=== PATIENT | female | born 1955 | race Caucasian/White ===

== ENCOUNTER 2024-09-10 09:00 | Outpatient (AMB) | payer OTHER, SELFPAY ==
--- NOTE | 2024-09-10 09:02 | MHC.PC.OV ---
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 Allergies cholecalciferol (vitamin D3) [Vitamin D3] Allergy (Unknown, Verified 09/10/24 09:02) nausea and vomiting epinephrine Allergy (Unknown, Verified 09/10/24 09:02) anaphylaxis penicillin V Allergy (Unknown, Verified 09/10/24 09:02) nausea and vomiting shell fish Allergy (Severe, Uncoded 09/10/24 09:23) Throat swelling Band-Aid Allergy (Unknown, Uncoded 09/10/24 09:02) redness and itching Nibley Syrup Allergy (Unknown, Uncoded 09/10/24 09:02) shortness of breath Latex Gloves Allergy (Unknown, Uncoded 09/10/24 09:02) itching Medical Adhesive Allergy (Unknown, Uncoded 09/10/24 09:02) redness and itching Medication List - Last Reconciled 09/10/24 by Kathi Block PA-C albuterol sulfate 90 mcg/actuation 2 puffs inhalation Q4-6H PRN cromolyn 1 spray intranasal TID diphenhydramine HCl (Benadryl) 25 mg PO BEDTIME PRN Tobacco use date assessed: 09/10/24 Fall risk assessment: No Falls in past year Last assessed Fall Risk: 09/10/24 Dental Screening Dental Screen Date: 09/10/24 Did you have a dental visit in the last 12 months?: Yes Did you have a dental problem in the last 6 months where you did not have access to dental care?: No Was dental information given to patient?: Patient has 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 She is transferring from [place]. She has a significant past medical history of a DVT, hidradenitis, monoallelic mutation of a TM gene, family history of pancreatic cancer granulomatous disease (lung, liver, spleen), fatty liver, dyslipidemia, allergic rhinitis, osteopenia, rectal polyp, breast cancer, alcohol abuse, lung nodule, osteoarthritis, tobacco use heme/onc: . Patient has a history of infiltrate in ductal carcinoma of the breast 13 years ago and has MRI/mammo follow ups. She got notice from [facility] recently that there are new recommendations regarding a TM gene for which she tested positive for. Pancreatic screening is recommended if she has a family history of pancreatic cancer. She has 3 maternal cousins who from pancreatic cancer. Has consult with GI for MRCP 09/23/24. Her brother recently tested positive for PABPN 1 gene for ocular pharyngeal muscular dystrophy. He is heterozygous dominant with a pathogenic variant of allele repeat #13. Per his results, testing for at-risk family members should be considered. Patient follows with Heme-Onc at [facility] Dr. Rodriguez. Dvt of left leg, on eliquis for life per heme/onc Dr. Rodriguez. CV: Blood pressure today in the office is 138/72. Has a history of high cholesterol and does not want statins. MSK: has OA Colonoscopy: Overdue and states that following her last colonoscopy she has had intermittent anal leakage and refuses to do this again. Does not want screening for colon cancer at this point. Bone density: 04/28-osteopenia Mammo/MRI: Mammo 08/28, MRI 02/26-needs new orders Pap: Not had 1 in many years and does not wish to start Low-dose lung cancer screening: June 2023 unchanged. Does this at [facility]. 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 1. Little interest or pleasure in doing things: not at all 2. Feeling down, depressed, or hopeless: not at all 3. Trouble falling or staying asleep, or sleeping too much: not at all 4. Feeling tired or having little energy: not at all 5. Poor appetite or overeating: not at all 6. Feeling bad about yourself - or that you are a failure or have let yourself or your family down: not at all 7. Trouble concentrating on things, such as reading the newspaper or watching television: not at all 8. Moving or speaking so slowly that other people could have noticed. Or the opposite - being so fidgety or restless that you have been moving around a lot more than usual: not at all 9. Thoughts that you would be better off or of hurting yourself in some way: not at all Total score: 0 Depression Screening Interpretation: Negative Depression Screening Done: Yes 52167 - PHQ-9 Billing: Yes Source: Developed by Drs. Raul Samuels, Kanchan Patterson, Andre Cobb and colleagues, with an educational jaron from [employer]. Thrive Questionnaire Date Thrive assessed: 09/10/24 I am a: Patient What is your living situation today?: I choose not to answer this question Within the past 12 months, did the food you bought not last and you didn't have the money to get more?: I choose not to answer this question Within the past 12 months, did you worry whether your food would run out before you got money to buy more?: I choose not to answer this question Do you have trouble paying for medicines?: I choose not to answer this question Do you have trouble getting transportation to medical appointments?: I choose not to answer this question Do you have trouble paying your heating and electricity bill?: I choose not to answer this question Do you have trouble taking care of your child, family member or friend?: I choose not to answer this question Do you have trouble with day-to-day activities such as bathing, preparing meals, shopping, managing finances, etc.?: I choose not to answer this question Are you currently unemployed and looking for a job?: I choose not to answer this question Are you interested in more education?: I choose not to answer this question Please select the resources that you would like help with: None Currently or been in a relationship where the following occur: I choose not to answer THRIVE Score: 0 AUDIT C Alcohol Use Questionnaire (AUDIT-C) 1. How often do you have a drink containing alcohol?: 4 or more times a week 2. How many drinks containing alcohol do you have on a typical day when you are drinking?: 1 or 2 3. How often do you have six or more drinks on one occasion?: Less than monthly Total Score: 5 AARON-7 AMB Questionnaire AARON-7 Date AARON - 7 assessed: 09/10/24 Feeling nervous, anxious, or on edge: 0 = Not at all Not being able to stop or control worryin = Not at all Worrying too much about different things: 0 = Not at all Trouble relaxin = Not at all Being so restless that it is hard to sit still: 0 = Not at all Becoming easily annoyed or irritable: 0 = Not at all Feeling afraid as if something awful might happen: 0 = Not at all Total AARON-7 score (0-4 normal; 5-9 mild; 10-14 moderate; 15-21 severe): 0 Source: Developed by Drs. Raul Samuels, Kanchan Patterson, Andre Cobb and colleagues, with an educational jaron from [employer]. AARON-7 Assessment Billing AARON-7 Assessment Tool: AARON-7 Assessment 06829 Physical exam (Primary Care) Depression Screening Interpretation: Negative Currently or been in a relationship where the following occur: I choose not to answer Const Orientation/consciousness: patient oriented x3 HENMT Ears: hearing grossly normal bilaterally Neck Thyroid: Thyroid normal Lymphatic: no lymphadenopathy noted Resp Auscultation: clear to auscultation bilaterally Cardio Rate: regular rate Rhythm: regular rhythm Heart sounds: S1 normal heart sound present and S2 normal heart sound present GI Inspection: Yes normal to inspection Palpation (GI): Soft to palpation and Other GI palpation findings present (nontender, no cva tenderness) Auscultation: normoactive bowel sounds Rectal Exam - Female: deferred Skin General skin exam: no rashes or lesions noted Neuro General: patient oriented x3, gait normal and no focal motor deficits Coding Level of Care Code New Pt Level 4 (86946) Complex EM visit Add On G2211 Diagnoses At high risk for pancreatic cancer Z91.89 Monoallelic mutation of MOO gene Z15.89; Z15.01; Z15.09 History of left breast cancer Z85.3 Tobacco abuse Z72.0 Lung nodules R91.8 Dyslipidemia E78.5 Additional Codes AARON-7 Assessment Billing - AARON-7 Assessment Tool: AARON-7 Assessment 39846 ([id number]) PHQ-9 - 28763 - PHQ-9 Billing: Yes ([id number]) Assessment & Plan Assessment & Plan (1) At high risk for pancreatic cancer: Code(s): Z91.89 - Other specified personal risk factors, not elsewhere classified Category: Medical Plan: has follow up with gi for mri and mrcp (2) Monoallelic mutation of MOO gene: Code(s): Z15.89 - Genetic susceptibility to other disease; Z15.01 - Genetic susceptibility to malignant neoplasm of breast; Z15.09 - Genetic susceptibility to other malignant neoplasm Category: Medical Plan: as above (3) History of left breast cancer: Code(s): Z85.3 - Personal history of malignant neoplasm of breast Category: Medical Plan: mammo and mri ordered for surviellence (4) Tobacco abuse: Code(s): Z72.0 - Tobacco use Category: Medical Plan: not interested in quitting referral to thoracic surgery (5) Lung nodules: Code(s): R91.8 - Other nonspecific abnormal finding of lung field Category: Medical Plan: stable due now for ldct (6) Dyslipidemia: Code(s): E78.5 - Hyperlipidemia, unspecified Category: Medical Plan: lipids ordered Orders: Orders MM screening mammo BI Today Z12.31 - Encounter for screening mammogram for malignant neoplasm of breast Comprehensive [place]nn. Panel Fast Today E78.5 - Hyperlipidemia, unspecified, R91.8 - Other nonspecific abnormal finding of lung field, Z15.01 - Genetic susceptibility to malignant neoplasm of breast, Z15.09 - Genetic susceptibility to other malignant neoplasm, Z15.89 - Genetic susceptibility to other disease, Z72.0 - Tobacco use, Z80.0 - Family history of malignant neoplasm of digestive organs, Z85.3 - Personal history of malignant neoplasm of breast, Z91.89 - Other specified personal risk factors, not elsewhere classified UA CC w/rflx Micro + Cult Today E78.5 - Hyperlipidemia, unspecified, R91.8 - Other nonspecific abnormal finding of lung field, Z13.220 - Encounter for screening for lipoid disorders, Z15.01 - Genetic susceptibility to malignant neoplasm of breast, Z15.09 - Genetic susceptibility to other malignant neoplasm, Z15.89 - Genetic susceptibility to other disease, Z72.0 - Tobacco use, Z80.0 - Family history of malignant neoplasm of digestive organs, Z85.3 - Personal history of malignant neoplasm of breast, Z91.89 - Other specified personal risk factors, not elsewhere classified MR breast BI wo/w con Today Z15.01 - Genetic susceptibility to malignant neoplasm of breast, Z15.09 - Genetic susceptibility to other malignant neoplasm, Z15.89 - Genetic susceptibility to other disease, Z85.3 - Personal history of malignant neoplasm of breast Lipid Panel Today E78.5 - Hyperlipidemia, unspecified, R91.8 - Other nonspecific abnormal finding of lung field, Z15.01 - Genetic susceptibility to malignant neoplasm of breast, Z15.09 - Genetic susceptibility to other malignant neoplasm, Z15.89 - Genetic susceptibility to other disease, Z72.0 - Tobacco use, Z80.0 - Family history of malignant neoplasm of digestive organs, Z85.3 - Personal history of malignant neoplasm of breast, Z91.89 - Other specified personal risk factors, not elsewhere classified TSH reflex Free T4 Today E78.5 - Hyperlipidemia, unspecified, R91.8 - Other nonspecific abnormal finding of lung field, Z15.01 - Genetic susceptibility to malignant neoplasm of breast, Z15.09 - Genetic susceptibility to other malignant neoplasm, Z15.89 - Genetic susceptibility to other disease, Z72.0 - Tobacco use, Z80.0 - Family history of malignant neoplasm of digestive organs, Z85.3 - Personal history of malignant neoplasm of breast, Z91.89 - Other specified personal risk factors, not elsewhere classified Referrals Gastroenterology Referral C50.919 - Malignant neoplasm of unspecified site of unspecified female breast, Z15.01 - Genetic susceptibility to malignant neoplasm of breast, Z15.09 - Genetic susceptibility to other malignant neoplasm, Z15.89 - Genetic susceptibility to other disease, Z80.0 - Family history of malignant neoplasm of digestive organs, Z85.3 - Personal history of malignant neoplasm of breast, Z86.718 - Personal history of other venous thrombosis and embolism, Z91.89 - Other specified personal risk factors, not elsewhere classified Thoracic/General Surgery Referral R91.8 - Other nonspecific abnormal finding of lung field, Z72.0 - Tobacco use Dermatology Referral L98.9 - Disorder of the skin and subcutaneous tissue, unspecified
[2024-09-10 09:15] VITALS: BP 138/72; PULSE 76; RESP 14; TEMP 36.9; O2SAT 98; BMI 32.4
--- OUTSIDE RECORDS SUMMARY | 2024-09-10 09:26 | XMS_ITS | Clinical Summary ---
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 Name Role Phone Unavailable Primary Care Provider Unavailabl e Allergies Active Allergy Reactions Criticality Noted Date Comments [place] Swelling,Unknown 09/13/2023 Clarithromycin Rash Low 09/13/2023 Clindamycin Rash Low 09/13/2023 Epinephrine Other 02/27/2013 Tachycardia Ferrous Sulfate Rash Low 09/13/2023 Latex Rash Low 09/13/2023 Lidocaine 09/13/2023 Molds & Smuts 09/13/2023 Other Palpitations Low 09/13/2023 Penicillins Anaphylaxis,Swelling High 02/27/2013 Prednisone Other 02/27/2013 Tachycardia Procaine Palpitations Low 09/13/2023 Shellfish Allergy Swelling 09/13/2023 Sulfamethoxazole-Trimethopr im Dizziness 09/13/2023 Wound Dressing Adhesive Rash Low 09/13/2023 Wound Dressings Rash Low 09/13/2023 Medications albuterol 108 (90 Base) MCG/ACT inhaler Inhale 2 puffs every 6 (six) hours if needed for wheezing. Active cromolyn (Nasachrom) 5.2 MG/ACT nasal spray Administer 1 spray into each nostril 4 times daily. Active azithromycin (Zithromax) 250 MG tabletIndicatio ns:Hordeolum externum of left lower eyelid Take 1 tablet (250 mg) by mouth Use as directed. Take 2 tablets on first day and then 1 tablet per day for 4 days 6 tablet Active Active Problems Problem Noted Date Diagnosed Date Age-related nuclear cataract of both eyes 2023 Alcohol dependence 09/13/2023 Class 1 obesity 09/13/2023 Tobacco dependence 09/13/2023 Malignant neoplasm of breast 06/12/2013 Overview (09/13/2023): Breast Cancer Social History Tobacco Use Types Packs/Day Years Used Date Smoking Tobacco: Never Assessed Comments Unknown Sex and Gender Information Value Date Recorded Sex Assigned at Female 09/12/2023 9:20 AM EDT Legal Sex Female 8:32 PM EDT Gender Identity Female 09/12/2023 9:20 AM EDT Sexual Orientation Straight 09/12/2023 9: 20 AM EDT Plan of Treatment Health Maintenance Due Date Last Done Comments CT Colonography 1957 Colonoscopy 1957 Colorectal Cancer Screening 1957 Depression Screening 1957 FIT DNA/Cologuard 1957 FIT 1957 FOBT 1957 SDOH Screening 1957 Sigmoidoscopy 1957 Alcohol/Substance Use Screening 1969 Tobacco Screening 1969 Hepatitis C Screening 1975 Pneumococcal Vaccine: 50+ Years (1 of 1 - PCV) 2007 Zoster Vaccines (1 of 2) 2007 DTaP/Tdap/Td Vaccines (1 - Tdap) 11/09/2007 11/08/2007 Mammogram 01/28/2014 01/28/2013 COVID-19 Vaccine ( season) 2024 07/28/2021, 01/31/2021, 12/14/2020 Influenza Vaccine (#1) 2024 3, 02/26/2022, 03/15/2021, Additional history exists RSV Patients and Patients Aged 60 years or older (1 - 1-dose 75+ series) 2032 HIB Vaccines Aged Out No longer eligi ble based on patient's age to complete this topic HPV Vaccines Aged Out No longer eligi ble based on patient's age to complete this topic Hepatitis A Vaccines Aged Out No long er eligible based on patient's age to complete this topic Hepatitis B Vaccines Aged Out No long er eligible based on patient's age to complete this topic IPV Vaccines Aged Out No longer eligi ble based on patient's age to complete this topic Meningococcal Vaccine Aged Out No giles karen eligible based on patient's age to complete this topic RSV under 20 months Aged Out No longe r eligible based on patient's age to complete this topic Rotavirus Vaccines Aged Out No longer eligible based on patient's age to complete this topic [place] [address] , [address] [place] [address] [facility]
--- OUTSIDE RECORDS SUMMARY | 2024-09-10 09:26 | XMS_ITS | Clinical Summary ---
Author Organization [facility] Address [address] [place] [address] Phone Care Team Providers Care Carpenter General Name Role Phone Emilie Alanis MD Primary Care Provider Allergies Active Allergy Reactions Criticality Noted Date Comments Adhesive Tape-Silicones Rash 06/07/2011 Local rash [place] Bioflavonoids 02/19/2011 Swelling throat with any citrus product Latex 10/02/2011 Lidocaine Hcl 02/19/2011 tita- tachycardia, flushing Penicillins Rash 02/19/2011 Prednisone Other 02/19/2011 tachycardia Procaine 01/22/2014 Patient states she cannot take novocain Sulfamethoxazole-Trimethoprim 2011 dizziness Medications apixaban (Eliquis) 2.5 mg tablet Take 1 tablet (2.5 mg total) by mouth 2 (two) times a day. 01/24/2024 Active neomycin-polymy franny-dexamethame thasone (POLYDEX) 3.5 mg/g-10,000 unit/g-0.1 % ointment Apply to the eye twice a day with flare 09/10/2023 Active albuterol HFA (Ventolin HFA) 90 mcg/actuation inhaler Inhale 2 puffs by mouth every 4 (four) hours if needed for wheezing (coughing). 04/12/2023 Active mupirocin (BACTROBAN) 2 % ointment Apply qid to affected areas 10/11/2021 Active halobetasol (ULTRAVATE) 0.05 % cream Apply bid to affected area 10/11/2021 Active triamcinolone (KENALOG) 0.1 % cream Apply bid to affected area 05/19/2019 Active fluticasone propionate (FLONASE) 50 mcg/actuation nasal spray 2 Sprays by Each Nare route daily. 12/21/2013 Active cromolyn (NASALCHROM) 5.2 mg/spray (4 %) nasal spray 1 Fonda by Nasal route 4 times daily. Active Active Problems Problem Noted Date Diagnosed Date Premature menopause 05/29/2024 Overview (05/29/2024): age 44; bone density normal 2012; repeat 2 yrs or more Rectal polyp 05/29/2024 Alcohol abuse 05/29/2024 Osteoarthritis 05/29/2024 Overview (05/29/2024): Cervical & Lumbosacral Spine Lung nodule 05/29/2024 Overview (05/29/2024): Unclear when this was seen; chest CT in 2009 and 2 CXR's in 2011 w/ NO nodule; stable on CT 2013 Fibrocystic breast disease 05/29/2024 Acute deep vein thrombosis ( DVT) of tibial vein of left lower extremity (CMS/HCC V24, CMS/HCC V28) 02/19/2023 Hidradenitis 10/11/2021 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 Overview (05/29/2024): See note from [facility]; sister w/ this mutation precipitated testing; risk of breast and panc cancer Fatty liver 11/25/2017 Overview (05/29/2024): 06/13/15 CT Osteopenia 06/28/2016 Overview (05/29/2024): T score Left hip -1.3; 10/21: L fem neck -1.7 Eye lesion 08/13/2014 Granulomatous disease (CMS/HCC V24, CMS/HCC V28) 04/09/2014 Overview (05/29/2024): Lung, liver, spleen on CT; stable Emphysema lung (CMS/HCC V24, CMS/HCC V28) 2013 Overview (05/29/2024): Dr Campbell Diastolic dysfunction, left ventricle 10/24/2011 Overview (05/29/2024): Echo 10/15, rest fine Cholelithiasis 10/23/2011 Overview (05/29/2024): 06/13/2015 CT stable Hyperlipidemia 07/17/2011 Overview (05/29/2024): Current high hdl when drinking Tobacco use disorder 02/19/2011 Immunizations Name Administration Dates Next Due Influenza trivalent, 0.5mL, preservative free (Fluarix; FluLaval; Fluzone) ages 6mo and older (Afluria) 3 years and older 02/26/2022,02/25/2020,03/03/2018 [employer] SARS-CoV-2 COVID-19, mRNA, LNP-S, preservative free 07/28/2021,01/31/2021,12/14/2020 Td Tetanus diptheria (Tdvax) 7yo and older 11/07 Surgical History Surgery Date Site/Laterality Comments HAND SURGERY PROCEDURE: OK UNLISTED PROCEDURE HANDS/FINGERS; COMMENT: thumb trauma OTHER SURGICAL HISTORY PROCEDURE: OK ECHO TRANSTHORAC R-T 2D W/WO M-MODE REC COMP; COMMENT: diastolic dysfunction STEREOTACTIC BREAST BIOPSY 06/2016 Bilateral PROCEDURE: STEREOTACTIC BREAST BIOPSY STEREOTACTIC BREAST BIOPSY 01/12/2013 Left PROCEDURE: STEREOTACTIC BREAST BIOPSY OTHER SURGICAL HISTORY 02/03/1997 PROCEDURE: OK LARYNGOSCOPY FLEXIBLE DIAGNOSTIC BREAST LUMPECTOMY 03/03/2013 Left PROCEDURE: HISTORICAL BREAST LUMPECTOMY Medical History Medical History Date Comments Allergic rhinitis DX:Allergic rh initis Alcohol abuse DX:Alcohol abuse Fibrocystic breast disease DX:Fi brocystic breast disease Premature menopause DX:Premature menopause; COMMENT: age 44 Rectal polyp DX:Rectal polyp Hyperlipidemia 07/17/2011 DX:Hyperlipidemi a Diastolic dysfunction, left ventricle 10/24/2011 DX:Diastolic dysfunction, left ventricle Osteoarthritis DX:Osteoarthriti s; COMMENT: Cervical & Lumbosacral Spine Infiltrating ductal carcinom a of breast ([facility]/HCC V24, CMS/[facility] V28) 01/14/2013 DX:Infiltrating ductal carc inoma of breast (HCC); COMMENT: 01/2013 Left, Stage I, T1C N0, ER Positive, OK Weakly Positive, HER-2 Negative, Lumpectomy, Partial breast raadiation, 2013 Anastrozole Emphysema lung (CMS/HCC V24, [facility] V28) 04/09/2014 DX:Emphysema lung (HCC); COM MENT: Dr Campbell Cholelithiasis 10/23/2011 DX:Cholelithiasi s; COMMENT: 06/13/2015 CT stable Fatty liver 11/25/2017 DX:Fatty liver; COMMENT: 06/13/15 CT Osteopenia 06/28/2016 DX:Osteopenia; C OMMENT: T score Left hip -1.3; 10/21: L fem neck -1.7 Eye lesion 08/13/2014 DX:Eye lesion Granulomatous disease (CMS/H CC V24, [facility] V28) 04/09/2014 DX:Granulomatous disease (HC C); COMMENT: Lung, liver, spleen on CT; stable Lung nodule DX:Lung nodule; COMMENT: Unclear when this was seen; chest CT in 2009 and 2 CXR's in 2011 w/ NO nodule; stable on CT 2013 Seasonal allergies 02/19/2011 DX:Seasonal a llergies Tobacco use disorder 02/19/2011 DX:Tobacco use disorder Family History Medical History Relation Name Comments Throat cancer Aunt Other: duodenal cancer Brother 1 Alexander Other: valve problem Brother 1 Alexander needs s urgery Asthma Brother 2 Hakeem Other: bladder cancer Brother 2 Hakeem a t 57 COPD Father Other: cancer kidney Father Parkinson's Disease Maternal Grandmother Breast cancer Mother x 2, @ age 60 & 2nd breast cancer @ age 65 Breast cancer Mother's side 1 Niece dx'd age 36 Other: Pancreatic Cancer Mother's side 2 3 cousins, diagnosed in their 30's , 40's, and 50's Alcohol abuse Other 1 brother,father Diabetes Other 2 uncles Throat cancer Other 3 cousin Breast cancer Sister bilateral w/ m ets to lung and liver Other: muscular dystrophy Uncle ad ult Relation Name Status Comments Aunt Brother 1 Bill Brother 2 Hakeem Father Maternal Grandmother Mother Mother's side 1 Mother's side 2 Other 1 Other 2 Other 3 cousin Alive Sister Uncle Social History Tobacco Use Types Packs/Day Years Used Date Smoking Tobacco: Every Day Cigarettes Smokeless Tobacco: Never Alcohol Use Standard Drinks/Week Comments Yes 0 (1 standard drink = 0.6 oz pur e alcohol) Comments Unknown Sex and Gender Information Value Date Recorded Sex Assigned at Female 03/26/2024 5:50 AM EST Legal Sex Female 1:51 AM EST Gender Identity Female 03/26/2024 5:50 AM EST Sexual Orientation Straight 03/26/2024 5: 50 AM EST Obstetrics History Last Filed Vital Signs Vital Sign Reading Time Taken Comments Blood Pressure 138/80 02/06/2024 3:17 PM EDT Pulse 64 02/06/2024 3:17 PM EDT Temperature - - Respiratory Rate - - Oxygen Saturation - - Inhaled Oxygen Concentration - - Weight 83.2 kg (183 lb 6.4 oz) 02/06/2024 3:17 P M EDT Height 157.5 cm (5' 2 ) 02/06/2024 3:17 PM EDT Body Mass Index 33.54 02/06/2024 3:17 PM EDT Plan of Treatment Health Maintenance Due Date Last Done Comments Hepatitis A Vaccines (1 of 2 - Risk 2-dose series) 1976 Pneumococcal Vaccine: 50+ Years (1 of 2 - PCV) 1976 Zoster Vaccines (1 of 2) 1976 RSV Immunization Adult Patients (1 - Risk 60-74 years 1-dose series) 2017 DTaP,Tdap,and Td Vaccines (2 - Td or Tdap) 11/07/2017 11/08/2007 Colorectal Cancer Screening: Stool Based Tests (FOBT/FIT) 04/14/2022 Depression Screening 04/14/2022 Lung Cancer Screening (Low Dose CT) 04/14/2022 03/13/2014, 03/13/2013 Social Influencers of Health Screening 04/14/2022 Falls Risk Assessment 2022 COVID-19 Vaccine (2023-2 5 season) 2024 07/28/2021, 01/31/2021, 12/14/2020 Breast Cancer Screening 05/17/2024 05/17/19, 03/18/2018 Influenza Vaccine (Season Ended) 2025 02/26/2022, 02/25/2020, 03/03/2018 Osteoporosis Screening (Bone Density Screening) 10/22/2027 10/21/2017 Cholesterol Screening (Lipid Panel) 02/23/2028 02/22/2023 Hepatitis C Screening Completed 06/25/2012 HIB Vaccines Aged Out No longer eligi [...] on patient's age to complete this topic MMR Vaccines Aged Out No longer eligi ble based on patient's age to complete this topic Meningococcal ACWY Vaccine Aged Out N o longer eligible based on patient's age to complete this topic Meningococcal B Vaccine Aged Out No l onger eligible based on patient's age to complete this topic RSV Immunization Patients Under 20 months Aged Out No longer eligible b ased on patient's age to complete this topic Varicella Vaccines Aged Out No longer eligible based on patient's age to complete this topic Procedures Procedure Name Priority Date/Time Associated Diagnosis Comments LIPID PANEL Routine 02/22/2023 [facility] SCREENING DIGITAL Routine 03/18/2018 1:10 PM EST Encounter for screening mammogram for malignant neoplasm of breast [facility] DEXA AXIAL SKELETON Routine 10/21/2017 5:02 PM EDT Encounter for screening for osteoporosis HEPATITIS C SCREENING Routine 06/25/2012 from Last 3 Months or Most Recently Relevant to Health Maintenance Results * Lipid panel (02/22/2023) LDL/HDL Ratio 0 Comment:no interpretation Triglycerides 0 mg/dL Comment:no interpretation Cholesterol 0 mg/dL Comment:no interpretation HDL 0 mg/dL Comment:no interpretation LDL Cholesterol 0 mg/dL Comment:no interpretation Blood Venous blood specimen / Unknown Historical Provider LAB BLOOD ORDERABLES Ashley moura Result * [facility] SCREENING DIGITAL (03/18/2018 1:10 PM EST) Anatomical Region Laterality Modality Mammography 03/13/2018 2:17 PM EST Narrative 03/18/2018 1:[address] [facility] Diagnostic Imaging Department [address] [place] [id number] Patient: ??JOÃO ALAMO ?/Age/Sex: 1955 - 62 - F Unit#: ??[id number] ? Location/Status: ??SPDIMAM/REG CLI ? Mnemonic/Ordering Site: ??DIGSC/SPMAM Ordering Physician: ??RAFY AMAYA MD [facility] Screening Digital - 03/13/18 - 1535 EXAM: [facility] Screening Digital EXAM DATE AND TIME: 03/13/2018 3:39 PM HISTORY: ??Screening. Left lumpectomy and radiation treatment in 2012. On anastrozole. The patient also had a previous benign biopsy of the left breast. Multiple family members with breast carcinoma including mother, age 60, sister, age 64, and neice, age 35. COMPARISON: ??Outside digital mammograms dated 02/15/17, 01/26/16, 07/14/15 (left), 01/13/15, 07/09/14 (left). TECHNIQUE: CC and MLO views of both breasts were obtained using full field digital mammography. Bilateral digital breast tomosynthesis was performed in the MLO projection. Computer aided detection with the Yoyo 7.2-H was employed. (The study was read as a routine screening exam as we did not have access to the outside images when the patient was in the department for her study.) TISSUE DENSITY: b. There are scattered areas of fibroglandular density. FINDINGS: Focal spiculated asymmetry containing a biopsy marker is unchanged in the upper outer quadrant of the left breast, posterior depth, representing the lumpectomy scar. A left axillary surgical clip is also seen. No suspicious masses or grouped microcalcifications are identified in either breast. A skin lesion is again noted on the upper right breast. Slight skin thickening and retraction are noted on the left breast, overlying the lumpectomy scar, unchanged. The vascularity is unremarkable. IMPRESSION: Stable mammographic appearance of the breasts. ??No evidence of malignancy is seen. A negative mammogram in the presence of a clinically suspicious palpable abnormality does not preclude the possibility of malignancy or alter the indications for biopsy. BI-RADS: ??Category 2: Benign RECOMMENDATION(S): 1: Routine screening mammogram BILATERAL in 1 year. [id number], [id number] 3342F, 7025F Dictating Physician: ??YUE MCPHERSON MD Electronically Signed by: ??YUE MCPHERSON MD Dic Date/Time: ??03/18/18 1307 Sign date/Time: ??03/18/18 1310 Procedure Note Yue Mcpherson MD - 04/24/2022 [facility] Diagnostic Imaging Department [address] [place] [address] Patient: JOÃO ALAMO Hollis MunroeB./Age/Sex: 1955 - 62 - F Unit#: [id number] [facility] Order[facility] Physician: RAFY AMAYA MD [facility] Screening Digital - 03/13/18 - 1535 EXAM: [facility] Screening Digital EXAM DATE AND TIME: 03/13/2018 3:39 PM HISTORY: Screening. Left lumpectomy and radiation treatment in 2012. On anastrozole. The patient also had a previous benign biopsy of the leftbreast. Multiple family members with breast carcinoma including mother, age 60,sister, age 64, and neice, age 35. COMPARISON: Outside digital mammograms dated 02/15/17, 01/26/16, 07/14/15 (left), 01/13/15, 07/09/14 (left). TECHNIQUE: CC and MLO views of both breasts were obtained using fullfield digital mammography. Bilateral digital breast tomosynthesis was performedin the MLO projection. Computer aided detection with the Yoyo 7.2-[employer]as employed. (The study was read as a routine screening exam as we did not have accessto the outside images when the patient was in the department for herstudy.) TISSUE DENSITY: b. There are scattered areas of fibroglandular density. FINDINGS: Focal spiculated asymmetry containing a biopsy marker is unchanged in theupper outer quadrant of the left breast, posterior depth, representing thelumpectomy scar. A left axillary surgical clip is also seen. No suspicious masses or grouped microcalcifications are identified ineither breast. A skin lesion is again noted on the upper right breast. Slightskin thickening and retraction are noted on the left breast, overlying thelumpectomy scar, unchanged. The vascularity is unremarkable. IMPRESSION: Stable mammographic appearance of the breasts. No evidence of malignancyis seen. A negative mammogram in the presence of a clinically suspicious palpable abnormality does not preclude the possibility of malignancy or alter the indications for biopsy. BI-RADS: Category 2: Benign RECOMMENDATION(S): 1: Routine screening mammogram BILATERAL in 1 year. 67483, 52984 3342F, 7010F Dictating Physician: YUE MCPHERSON MD Electronically Signed by: YUE MCPHERSON MD Dic Date/Time: 03/18/18 1307 Sign date/Time: 03/18/18 1310 Rafy Amaya MD IMG BI PROCEDURES Final Res ult * [facility] DEXA AXIAL SKELETON (10/21/2017 5:02 PM EDT) Anatomical Region Laterality Modality Mammography 10/16/2017 10:4 2 AM EDT Narrative 10/21/2017 5:[address] [facility] Diagnostic Imaging Department [address] [place], [place] [address] Patient: ??JOÃO ALAMO ?/Age/Sex: 1955 - 62 - F Unit#: ??[id number] ? Location/Status: ??SPDIMAM/REG CLI ? Mnemonic/Ordering Site: ??MAMDEXAAX/SPMAM Ordering Physician: ??RAFY AMAYA MD [facility] Dexa Axial Skeleton - 10/21/171653 HISTORY: ??The patient is a 62-year-old postmenopausal female with clinical concern for metabolic bone disease. FINDINGS: ??Dual energy x-ray absorptiometry of the lumbar spine and femurs is performed. The mean bone mineral density at L1-L4 is 1.206 gm/cm2 which is 102% of that of young normals and 110% of that of age matched controls. This yields a T-score of 0.2 and a Z-score of 0.9 and there is therefore no evidence of osteoporosis or osteopenia here. The mean bone mineral density of the femurs bilaterally is 0.929 gm/cm2 which is 92% of that of young normals and 99% of that of age matched controls. ??This yields a T-score of -0.6 and a Z-score of -0.1 and there is therefore no evidence of osteoporosis or osteopenia here. However, the T-score of the right femoral neck is -1.2 and that of the left femoral neck is -1.7 which is diagnostic of osteopenia. IMPRESSION: 1. Osteopenia. 2. FRAX analysis yields a 10-year probability of major osteoporotic fracture of 7.0% and a 10-year probability of hip fracture of 0.8%. Code 32094 Dictating Physician: ??KJ KUHN MD Electronically Signed by: ??KJ KUHN MD Dic Date/Time: ??10/21/171658 Sign date/Time: ??10/21/17 1702 Procedure Note Kj Kuhn MD - 04/24/2022 [facility] Diagnostic Imaging Department [address] [place], [place] [address] Patient: JOÃO ALAMO Hollis MunroeB./Age/Sex: 1955 - 62 - F Unit#: [id number] [facility] Ordering Physician: RAFY AMAYA MD [facility] Dexa Axial Skeleton - 10/21/17 - 1653 HISTORY: The patient is a 62-year-old postmenopausal female withclinical concern for metabolic bone disease. FINDINGS: Dual energy x-ray absorptiometry of the lumbar spine and femursis performed. The mean bone mineral density at L1-L4 is 1.206 gm/cm2 which is102% of that of young normals and 110% of that of age matched controls. Thisyields a T-score of 0.2 and a Z-score of 0.9 and there is therefore no evidenceof osteoporosis or osteopenia here. The mean bone mineral density of the femurs bilaterally is 0.929 gm/gy7ajntb is 92% of that of young normals and 99% of that of age matched controls.This yields a T-score of -0.6 and a Z-score of -0.1 and there is therefore no evidence of osteoporosis or osteopenia here. However, the T-score of theright femoral neck is -1.2 and that of the left femoral neck is -1.7 which is diagnostic of osteopenia. IMPRESSION: 1. Osteopenia. 2. FRAX analysis yields a 10-year probability of major osteoporoticfracture of 7.0% and a 10-year probability of hip fracture of 0.8%. Code 71726 Dictating Physician: KJ KUHN MD Electronically Signed by: KJ KUHN MD Dic Date/Time: 10/21/171658 Sign date/Time: 10/21/17 170 Rafy Amaya MD IMG BI PROCEDURES Final Res ult * Hepatitis C Screening (06/25/2012) [facility] Hepatitis C Screening abstracted Historical Provider HEALTH MAINTENANCE Final Result from Last 3 Months or Most Recently Relevant to Health Maintenance Insurance [facility] Care Teams Carpenter General Relationship Specialty Start Date End Date Emilie Alanis MD PCP - General 11/04/21
--- OUTSIDE RECORDS SUMMARY | 2024-09-10 09:26 | XMS_ITS | Clinical Summary ---
Author Organization [facility] Address [address] [place] [address] Care Team Providers Care Tie Binder Name Role Phone Unavailable Primary Care Provider Unavailabl e Social History Tobacco Use Types Packs/Day Years Used Date Smoking Tobacco: Never Assessed Comments Unknown Sex and Gender Information Value Date Recorded Sex Assigned at Not on file Legal Sex Female 5:03 PM EDT Gender Identity Not on file Sexual Orientation Not on file Plan of Treatment Health Maintenance Due Date Last Done Comments Hepatitis C Virus Screening 1955 DTaP/Tdap/Td Vaccines (1 - Tdap) 1976 Pneumococcal Vaccines 50+ (1 of 1 - PCV) 2007 Zoster (Shingles) Vaccine (1 of 2) 2007 COVID-19 Vaccine ( - 2023-2 5 season) 2024 RSV Vaccine 60 years and old er and Patients (1 - 1-dose 75+ series) 2032 Hepatitis B Vaccines Aged Out No long er eligible based on patient's age to complete this topic
== END 2024-09-10 11:29 | disposition home or self-care (01) ==
LOC: HO.HMCFM 09:00
PROVIDERS: PCP Physician Assistant; Visit Provider Physician Assistant
DX: Z91.89 Other specified personal risk factors, not elsewhere classified (principal); Z15.89 Genetic susceptibility to other disease; Z15.01 Genetic susceptibility to malignant neoplasm of breast; Z15.09 Genetic susceptibility to other malignant neoplasm; Z85.3 Personal history of malignant neoplasm of breast; Z72.0 Tobacco use; R91.8 Other nonspecific abnormal finding of lung field; E78.5 Hyperlipidemia, unspecified

== ENCOUNTER → 2024-09-10 09:00 | Outpatient (BNVA) | payer OTHER, SELFPAY | PROVIDERS: PCP Physician Assistant; Visit Provider Physician Assistant | DX: Z76.89 Persons encountering health services in other specified circumstances (principal); R91.8 Other nonspecific abnormal finding of lung field; E78.5 Hyperlipidemia, unspecified; Z85.3 Personal history of malignant neoplasm of breast; Z86.718 Personal history of other venous thrombosis and embolism; Z15.01 Genetic susceptibility to malignant neoplasm of breast; Z15.09 Genetic susceptibility to other malignant neoplasm; Z15.89 Genetic susceptibility to other disease; Z79.01 Long term (current) use of anticoagulants; Z91.89 Other specified personal risk factors, not elsewhere classified; Z72.0 Tobacco use | CPT/HCPCS: 96127 ==

== ENCOUNTER 2024-12-23 13:33 | Outpatient (AMB) | payer OTHER, SELFPAY ==
--- NOTE | 2024-12-23 13:42 | MHC.PC.OV ---
Vital Signs 12/23/24 13:47 Height 5 ft 2.76 in BP 138/78 Blood Pressure Location Rt brachial Position Sitting Pulse 79 Pulse Source Pulse Oximeter Pulse Oximetry (%) 96 Oxygen Delivery Method Room Air Intake Visit Reasons: cpe Intake Note: Physical Senior Architectural Designer Required: No Allergies cholecalciferol (vitamin D3) (Vitamin D3) Allergy (Unknown, Verified 12/23/24 13:44) nausea and vomiting epinephrine Allergy (Unknown, Verified 12/23/24 13:44) anaphylaxis penicillin V Allergy (Unknown, Verified 12/23/24 13:44) nausea and vomiting shell fish Allergy (Severe, Uncoded 12/23/24 13:44) Throat swelling Band-Aid Allergy (Unknown, Uncoded 12/23/24 13:44) redness and itching Ada Syrup Allergy (Unknown, Uncoded 12/23/24 13:44) shortness of breath Latex Gloves Allergy (Unknown, Uncoded 12/23/24 13:44) itching Medical Adhesive Allergy (Unknown, Uncoded 12/23/24 13:44) redness and itching Medication List - Last Reconciled 12/23/24 by Kathi Block PA-C albuterol sulfate 90 mcg/actuation 2 puffs inhalation Q4-6H PRN apixaban (Eliquis) 2.5 mg PO BID diphenhydramine HCl (Benadryl) 25 mg PO BEDTIME PRN [Nasal crom spray 3 times daily ] Tobacco use date assessed: 12/23/24 Dental Screening Dental Screen Date: 09/10/24 HPI cpe HPI Details Patient is a 69-year-old female who presents today for a physical exam. She has a significant past medical history of a DVT, hidradenitis, monoallelic mutation of a TM gene, family history of pancreatic cancer granulomatous disease (lung, liver, spleen), fatty liver, dyslipidemia, allergic rhinitis, osteopenia, rectal polyp, breast cancer, alcohol abuse, lung nodule, osteoarthritis, tobacco use. heme/onc: . Patient has a history of infiltrate in ductal carcinoma of the breast 13 years ago and has MRI/mammo follow ups. She got notice from [facility] recently that there are new recommendations regarding a TM gene for which she tested positive for. Pancreatic screening is recommended if she has a family history of pancreatic cancer. She has 3 maternal cousins who from pancreatic cancer. Has followed with GI and recently had a MRI of the abdomen and pelvis. Overall normal other than the gallstones noted and fatty liver. Asymptomatic from this. Her brother recently tested positive for PABPN 1 gene for ocular pharyngeal muscular dystrophy. He is heterozygous dominant with a pathogenic variant of allele repeat #13. Per his results, testing for at-risk family members should be considered. Patient follows with Heme-Onc at [facility] Dr. Rodriguez. Dvt of left leg, on eliquis for life per heme/onc Dr. Rodriguez. CV: Blood pressure today in the office is 138/78. Has a history of high cholesterol and does not want statins. MSK: has OA GI: Up-to-date with pancreatic screening. Followed with [facility] GI. Noted to have fatty liver. States that she has been eating more fatty foods than previous. Colonoscopy: Overdue and states that following her last colonoscopy she has had intermittent anal leakage and refuses to do this again. Does not want screening for colon cancer at this point. Bone density: 04/28-osteopenia Mammo/MRI: Mammo 08/28, MRI 02/26-due for MRI this fall. Has not heard about this being booked. Pap: Not had 1 in many years and does not wish to start Low-dose lung cancer screening: June 2023 unchanged. Does this at [facility]. Had the referral put in but has not followed up due to some stressors. 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 Current occupational exposures/hazards: Yes (hazards in pt homes) Cognitive needs: No Hearing needs: No Vision needs: No Questionnaire Thrive Questionnaire Date Thrive assessed: 09/10/24 I am a: Patient What is your living situation today?: I choose not to answer this question Within the past 12 months, did the food you bought not last and you didn't have the money to get more?: I choose not to answer this question Within the past 12 months, did you worry whether your food would run out before you got money to buy more?: I choose not to answer this question Do you have trouble paying for medicines?: I choose not to answer this question Do you have trouble getting transportation to medical appointments?: I choose not to answer this question Do you have trouble paying your heating and electricity bill?: I choose not to answer this question Do you have trouble taking care of your child, family member or friend?: I choose not to answer this question Do you have trouble with day-to-day activities such as bathing, preparing meals, shopping, managing finances, etc.?: I choose not to answer this question Are you currently unemployed and looking for a job?: I choose not to answer this question Are you interested in more education?: I choose not to answer this question Please select the resources that you would like help with: None Currently or been in a relationship where the following occur: I choose not to answer THRIVE Score: 0 AARON-7 AMB Questionnaire AARON-7 Date AARON - 7 assessed: 09/10/24 Source: Developed by Drs. Raul Samuels, Kanchan Patterson, Andre Cobb and colleagues, with an educational jaron from [employer]. Physical exam (Primary Care) Vital Signs: Last Vital Signs Pulse 79 12/23/24 13:47 BP 138/78 12/23/24 13:47 Pulse Ox 96 12/23/24 13:47 Oxygen Delivery Method Room Air 12/23/24 13:47 Tobacco/Smoking Status: Tobacco use Status Tobacco use date assessed 12/23/24 12/23/24 13:51 Patient Tobacco Use Status Current everyday Tobacco 12/23/24 13:43 e-Cigarette/Vaping Use Never Used 12/23/24 13:43 Thrive Assessment: Date of Thrive Assessment Date Thrive assessed 09/10/24 12/23/24 13:43 Currently or been in a relationship where the following occur: I choose not to answer Const Orientation/consciousness: patient oriented x3 HENMT Ears: hearing grossly normal bilaterally and TM's normal bilaterally General nose exam: No nasal polyps present Face and sinus: Yes sinuses nontender Mouth: Normal oral and palatal mucosa present Eyes Pupils: Equal, round and reactive pupils present EOM: EOMs intact bilaterally Neck Neck: Yes full ROM and Yes no lymphadenopathy Thyroid: Thyroid normal Chest Chest palpation & inspection: normal inspection of the chest Resp Auscultation: clear to auscultation bilaterally Cardio Rate: regular rate Rhythm: regular rhythm Heart sounds: S1 normal heart sound present and S2 normal heart sound present Peripheral pulses: Peripheral pulses 2+ throughout GI Other: Soft, nontender Auscultation: normal bowel sounds Rectal Exam - Female: deferred General: Yes no CVA tenderness Back/Spine/Pelvis Other: Nontender Back: no CVA tenderness Skin General skin exam: no rashes or lesions noted Neuro General: patient oriented x3, gait normal, CN's II-XI intact bilaterally and deep tendon reflexes 2+ bilaterally Cranial nerves: Yes Equal, round and reactive pupils present Motor exam (neuro): 5/5 motor strength present throughout Sensory Exam: double simultaneous stimulation for sensation normal Coordination: ftbcyq-re-baot test normal and Romberg test negative Extrem General: Yes normal to inspection and Yes full ROM Psych Affect: normal affect Attitude: cooperative Thought process: Normal thought process present Thought content: Normal thought content present Insight: Good insight present (Psych) Judgement: Good judgement present (Psych) Coding Level of Care Code Est Pt Prev Care >65y(35315) Diagnoses Routine general medical examination at a health care facility Z00.00 Gallstones K80.20 Dyslipidemia E78.5 At high risk for pancreatic cancer Z91.89 Fatty liver K76.0 Assessment & Plan Assessment & Plan (1) Routine general medical examination at a health care facility: Code(s): Z00.00 - Encounter for general adult medical examination without abnormal findings Plan: Health maintenance reviewed. Labs reviewed. Advised patient to get the breast MRI and low-dose CAT scan screen. (2) Gallstones: Code(s): K80.20 - Calculus of gallbladder without cholecystitis without obstruction Category: Medical Plan: Asymptomatic (3) Dyslipidemia: Code(s): E78.5 - Hyperlipidemia, unspecified Category: Medical Plan: Going to work on a low-fat diet. Does not want statins at this time. We will recheck labs in 6 months after diet changes (4) At high risk for pancreatic cancer: Code(s): Z91.89 - Other specified personal risk factors, not elsewhere classified Category: Medical Plan: Up-to-date screening. Follows with GI (5) Fatty liver: Code(s): K76.0 - Fatty (change of) liver, not elsewhere classified Category: Medical Plan: As above. Orders: Orders Complete Blood Count Auto Diff Today E78.5 - Hyperlipidemia, unspecified, K76.0 - Fatty (change of) liver, not elsewhere classified, Z72.0 - Tobacco use, Z91.89 - Other specified personal risk factors, not elsewhere classified Lipid Panel Today E78.5 - Hyperlipidemia, unspecified, K76.0 - Fatty (change of) liver, not elsewhere classified, Z72.0 - Tobacco use, Z91.89 - Other specified personal risk factors, not elsewhere classified Comprehensive [place]. Panel Fast Today E78.5 - Hyperlipidemia, unspecified, K76.0 - Fatty (change of) liver, not elsewhere classified, Z72.0 - Tobacco use, Z91.89 - Other specified personal risk factors, not elsewhere classified
[2024-12-23 13:47] VITALS: BP 138/78; PULSE 79; O2SAT 96
--- OUTSIDE RECORDS SUMMARY | 2024-12-23 14:28 | XMS_ITS | Clinical Summary ---
Author Organization [facility] Address [address] [facility] [address] [place] [id number] Phone Care Team Providers Care Lean Manufacturing Leader Name Role Phone Jacinta Gaona MD Primary Care Provider + Self-Referred, Patient Unavailable Unavailab Rafy Jiang MD Unavailable [phone] Rafy Amaya MD Unavailable [phone] Vesta Pretty MD, MPH Unavailable [phone] Allergies Active Allergy Reactions Criticality Noted Date Comments Epinephrine Other (See Comments) 02/27/2013 Tachycardia Other Rash Low 03/03/2013 Tape. Penicillins Anaphylaxis High 02/27/2013 Prednisone Other (See Comments) 02/27/2013 Tachycardia Medications albuterol 90 mcg/actuation inhaler INHALE 1 PUFF EVERY 4 HOURS NEEDED FOR SHORTNESS OF BREATH/DYSPNEA . 3 Active anastrozole (ARIMIDEX) 1 mg tablet Take 1 mg by mouth. Active fluticasone propionate (FLONASE) 50 mcg/actuation nasal spray 1 spray by Nasal route. Active cromolyn (NASALCROM) 5.2 mg/spray (4 %) nasal spray 1 spray by Nasal route 4 (four) times a day. Active Social History Tobacco Use Types Packs/Day Years Used Date Smoking Tobacco: Some Days Cigarettes 2 40 Smokeless Tobacco: Never Alcohol Use Standard Drinks/Week Comments Yes 10 (1 standard drink = 0.6 oz pu re alcohol) Education Answer Date Recorded Are you interested in more education? Not on luis e 09/16/2022 Are you concerned about learning? Not on file 09/16/2022 No 09/16/2022 No 09/16/2022 Digital Access Answer Date Recorded No 09/30/2022 No 09/30/2022 No 09/30/2022 Reliable internet access at home? Not on file 09/30/2022 Device with a working camera? Not on file Comments Unknown Sex and Gender Information Value Date Recorded Sex Assigned at Not on file Legal Sex Female 6:10 PM EST Gender Identity Not on file Sexual Orientation Not on file Last Filed Vital Signs Vital Sign Reading Time Taken Comments Blood Pressure 113/54 01/26/2019 1:07 PM EDT Pulse 72 01/26/2019 1:07 PM EDT Temperature 37.4 C (99.3 F) 01/26/2019 1:07 PM EDT drinking hot coffee Respiratory Rate 16 01/26/2019 1:07 PM EDT Oxygen Saturation 95% 01/26/2019 1:0 7 PM EDT Inhaled Oxygen Concentration - - Weight 79.6 kg (175 lb 7.8 oz) 01/26/2019 1:07 PM EDT DFCI Height 157.3 cm (5' 1.93 ) 01/26/2019 1 :07 PM EDT DFCI Body Mass Index 32.17 01/26/2019 1:07 PM EDT Plan of Treatment Health Maintenance Due Date Last Done Comments LIPID PANEL 1957 DEPRESSION SCREENING 1969 SMOKING Hx and SMOKELESS TOBACCO SCREENING 1970 HEPATITIS C SCREENING 1975 PNEUMOCOCCAL VACCINES (50+ years) (1 of 2 - PCV) 1976 COLOGUARD 2002 COLONOSCOPY 2002 COLORECTAL CANCER SCREENING 2002 FIT TEST 2002 FOBT 2002 SIGMOIDOSCOPY 2002 VIRTUAL COLONOSCOPY 2002 ZOSTER VACCINES (1 of 2) 2007 Adult Td,Tdap Booster 11/07/2017 11/08/2007 MAMMOGRAM 12/16/2020 12/16/2018, 01/28/2013 OSTEOPOROSIS SCREENING INITI AL (ONE-TIME) 2022 COVID-19 VACCINE (3 - 2024-2 5 season) 2024 01/31/2021, 12/14/2020 RSV VACCINE (1 - 1-dose 75+ series) 2032 HEPATITIS A VACCINES Aged Out No long er eligible based on patient's age to complete this topic HIB VACCINES Aged Out No longer eligi ble based on patient's age to complete this topic MENINGOCOCCAL VACCINES (ACWY) Aged Out No longer eligible based on patient's age to complete this topic MENINGOCOCCAL VACCINES (B) Aged Out N o longer eligible based on patient's age to complete this topic Medical Devices Not on file Procedures Procedure Name Priority Date/Time Associated Diagnosis Comments BI MRI BREAST OUTSIDE (NO INTERPRETATION) Routine 12/16/2018 12:00 AM EDT from Last 3 Months or Most Recently Relevant to Health Maintenance Results * MRI Breast Outside (No Interpretation) (12/16/2018 12:00 AM EDT) Other Narrative YASMANIH - 01/26/2019 11:09 AM EDT This study is for PACS storage only and not for interpretation. us Vesta Pretty MD, MPH IMG OUTSIDE IMAGING W/OUT IN TERPRETATION Final Result PERCIPIO_BWH from Last 3 Months or Most Recently Relevant to Health Maintenance [facility] O POS O POS O POS HMO POS O POS HMO POS HMO POS HMO POS Care Teams Lean Manufacturing Leader Relationship Specialty Start Date End Date Jacinta Gaona MD [address] [place] [id number] PCP - General 09/09/14 Self-Referred, Patient Referring Physician 12/22/18 Rafy Amaya MD [address] [place] [address] [email or web address] Internal Medicine 12/22/18 Rafy Amaya MD [address] [place] [address] [email or web address] Referring Physician Internal Medicine 01/26/19 Vesta Pretty MD, MPH [address] [place] [address] [email or web address] 01/26/19 Additional Source Comments The information contained in this document represents components of the legal health record. It is not the complete legal health record.[facility]
--- OUTSIDE RECORDS SUMMARY | 2024-12-23 14:28 | XMS_ITS | Clinical Summary ---
Author Organization [facility] Address [address] [place] [address] Phone Care Team Providers Care Cad Drafter Name Role Phone Emilie Alanis MD Primary Care Provider Allergies Active Allergy Reactions Criticality Noted Date Comments Adhesive Tape-Silicones Rash 06/07/2011 Local rash [place] Bioflavonoids 02/19/2011 Swelling throat with any citrus [...] 5.2 mg/spray (4 %) nasal spray 1 Secor by Nasal route 4 times daily. Active [...] gene 01/30/2019 Overview (05/29/2024): See note from [facility]; sister w/ this mutation precipitated testing; risk [...] older (Afluria) 3 years and older 02/26/2022,02/25/2020,03/03/2018 [employer] SARS-CoV-2 COVID-19, mRNA, LNP-S, preservative free 07/28/2021,01/31/2021,12/14/2020 Td Tetanus diptheria (Tdvax) 7yo and older 11/07 Surgical History Surgery Date Site/Laterality Comments HAND SURGERY PROCEDURE: PA UNLISTED PROCEDURE HANDS/FINGERS; COMMENT: thumb trauma OTHER SURGICAL HISTORY PROCEDURE: PA ECHO TRANSTHORAC R-T 2D W/WO M-MODE REC COMP; COMMENT: diastolic dysfunction STEREOTACTIC BREAST BIOPSY 06/2016 Bilateral PROCEDURE: STEREOTACTIC BREAST BIOPSY STEREOTACTIC BREAST BIOPSY 01/12/2013 Left PROCEDURE: STEREOTACTIC BREAST BIOPSY OTHER SURGICAL HISTORY 02/03/1997 PROCEDURE: PA LARYNGOSCOPY FLEXIBLE DIAGNOSTIC BREAST LUMPECTOMY 03/03/2013 Left [...] Spine Infiltrating ductal carcinom a of breast ([facility]/HCC V24, CMS/[facility] V28) 01/14/2013 DX:Infiltrating ductal carc inoma of breast (HCC); COMMENT: 01/2013 Left, Stage I, T1C N0, ER Positive, PA Weakly Positive, HER-2 Negative, Lumpectomy, Partial breast raadiation, 2013 Anastrozole Emphysema lung (CMS/HCC V24, [facility] V28) 04/09/2014 DX:Emphysema lung (HCC); COM MENT: Dr Campbell Cholelithiasis 10/23/2011 DX:Cholelithiasi s; COMMENT: 06/13/2015 CT stable Fatty liver 11/25/2017 DX:Fatty liver; COMMENT: 06/13/15 CT Osteopenia 06/28/2016 DX:Osteopenia; C OMMENT: T score Left hip -1.3; 10/21: L fem neck -1.7 Eye lesion 08/13/2014 DX:Eye lesion Granulomatous disease (CMS/H CC V24, [facility] V28) 04/09/2014 DX:Granulomatous disease (HC C); COMMENT: [...] Cancer Screening: Stool Based Tests (FOBT/FIT) 04/14/2022 Lung Cancer Screening (Low Dose CT) 04/14/2022 03/13/2014, 03/13/2013 Social Influencers of Health Screening 04/14/2022 Falls Risk Assessment 2022 COVID-19 Vaccine (2023-2 5 season) 2024 07/28/2021, 01/31/2021, 12/14/2020 Depression Screening 05/06/2024 Breast Cancer Screening 05/17/2024 05/17/19, 03/18/2018 Influenza Vaccine (#1) 2025 2, 02/25/2020, 03/03/2018 Osteoporosis Screening (Bone Density Screening) [...] Associated Diagnosis Comments LIPID PANEL Routine 02/22/2023 [facility] SCREENING DIGITAL Routine 03/18/2018 1:10 PM EST Encounter for screening mammogram for malignant neoplasm of breast [facility] DEXA AXIAL SKELETON Routine 10/21/2017 5:02 PM [...] PM EST Narrative 03/18/2018 1:10 PM EST [facility] Diagnostic Imaging Department [address] [place] [id number] Patient: DEEPTHI ALAMO Hollis Longoria./Age/Sex: 1955 - 62 - F Unit#: [id number] [facility] Mnemonic/Ordering Site: [facility] Ordering Physician: RAFY AMAYA MD Mitul Screening Digital - 03/13/18 - 1535 EXAM: [facility] Screening Digital EXAM DATE AND [...] MLO projection. Computer aided detection with the Klypper 7.2-H was employed. (The study was read [...] appearance of the breasts. No evidence of malignancy is seen. A negative mammogram in the presence of a clinically suspicious palpable abnormality does not preclude the possibility of malignancy or alter the indications for biopsy. BI-RADS: Category 2: Benign RECOMMENDATION(S): 1: Routine screening mammogram BILATERAL in 1 year. 73643, 63269 3342F, 7025F Dictating Physician: YUE MCPHERSON MD Electronically Signed by: YUE MCPHERSON MD Dic Date/Time: 03/18/18 1307 Sign date/Time: 03/18/18 1310 Procedure Note Yue Mcpherson MD - 04/24/2022 [facility] Diagnostic Imaging Department [address] [place] [address] Patient: DEJAHDEEPTHI /Age/Sex: 1955 - 62 - F Unit#: [id number] Location/Status: [facility] Mnemonic/Ordering Site: [facility] Ordering Physician: RAFY AMAYA MD [facility] Screening Digital - 03/13/18 - 1535 EXAM: [facility] Screening Digital EXAM DATE AND [...] MLO projection. Computer aided detection with the K[employer]pper 7.2-dbTwangas employed. (The study was read as a [...] Routine screening mammogram BILATERAL in 1 year. 94688, 56440 3342F, 7025F Dictating Physician: YUE MCPHERSON MD Electronically Signed by: YUE MCPHERSON MD Dic Date/Time: 03/18/18 1307 Sign date/Time: 03/18/18 1310 us Rafy Amaya MD IMG BI PROCEDURES Final Res ult * [facility] DEXA AXIAL SKELETON (10/21/2017 5:02 PM EDT) Anatomical Region Laterality Modality Mammography 10/16/2017 10:4 2 AM EDT Narrative 10/21/2017 5:02 PM EDT [facility] Diagnostic Imaging Department [address] [place] [address] Patient: DEEPTHI ALAMO Hollis MunroeB./Age/Sex: 1955 - 62 - F Unit#: [id number] [facility] Ordering Physician: RAFY AMAYA MD [facility] Dexa Axial Skeleton - 10/21/171653 HISTORY: The patient is a 62-year-old postmenopausal female with clinical concern for metabolic bone disease. FINDINGS: Dual [...] 99% of that of age matched controls. This yields a T-score of -0.6 and a [...] probability of hip fracture of 0.8%. Code 22461 Dictating Physician: KJ KUHN MD Electronically Signed by: KJ KUHN MD Dic Date/Time: 10/21/171658 Sign date/Time: 10/21/171701 Procedure Note Kj Kuhn MD - 04/24/2022 [facility] Diagnostic Imaging Department [address] [place] [address] Patient: CJ ALAMOADAM Longoria./Age/Sex: 1955 - 62 - F Unit#: [id number] Location/Status: [facility]emonic[facility] Ordering Physician: RAFY AMAYA MD Mitul Dexa Axial Skeleton - 10/21/171653 HISTORY: The patient is a 62-year-old postmenopausal [...] density of the femurs bilaterally is 0.929 gm/ji2qjpfi is 92% of that of young normals [...] probability of hip fracture of 0.8%. Code 69512 Dictating Physician: KJ KUHN MD Electronically Signed by: KJ KUHN MD Dic Date/Time: 10/21/17 1659 Sign date/Time: 10/21/17 1702 Rafy Amaya MD IMG BI PROCEDURES Final Res ult * Hepatitis C Screening (06/25/2012) Hepatitis C Screening abstracted Historical Provider HEALTH MAINTENANCE Final Result from Last 3 Months or Most Recently Relevant to Health Maintenance Insurance [facility] Care Teams Cad Drafter Relationship Specialty Start Date End Date Emilie Alanis MD PCP - General 11/04/21
--- OUTSIDE RECORDS SUMMARY | 2024-12-23 14:28 | XMS_ITS | Clinical Summary ---
Author Organization [facility] Address [address] [facility] [address] [place] [address] Care Team Providers Care Services Rep Name Role Phone Unavailable Primary Care Provider Unavailabl e Allergies Active Allergy Reactions Criticality Noted Date Comments [place] Swelling,Unknown 09/13/2023 Clarithromycin Rash Low 09/13/2023 Clindamycin [...] 1975 Pneumococcal Vaccine: 50+ Years (1 of 2 - PCV) 1976 Zoster Vaccines (1 of 2) 2007 DTaP/Tdap/Td Vaccines (1 - Tdap) 11/09/2007 11/08/2007 Mammogram 01/28/2014 01/28/2013 COVID-19 Vaccine ( season) 2024 07/28/2021, 01/31/2021, 12/14/2020 Influenza Vaccine (#1) 2025 , 02/26/2022, 03/15/2021, Additional history exists RSV Patients [...] patient's age to complete this topic Insurance [facility] , [address]
--- OUTSIDE RECORDS SUMMARY | 2024-12-23 14:28 | XMS_ITS | Clinical Summary ---
Author Organization [facility] Address [address] [place] [address] Care Team Providers Care Roll Capper Name Role Phone Unavailable Primary Care Provider [...]
== END 2024-12-23 15:04 | disposition home or self-care (01) ==
LOC: HO.HMCFM 13:34
PROVIDERS: PCP Physician Assistant; Visit Provider Physician Assistant
DX: Z00.00 Encounter for general adult medical examination without abnormal findings (principal); K80.20 Calculus of gallbladder without cholecystitis without obstruction; E78.5 Hyperlipidemia, unspecified; Z91.89 Other specified personal risk factors, not elsewhere classified; K76.0 Fatty (change of) liver, not elsewhere classified

== ENCOUNTER 2025-04-08 09:54 | Outpatient (AMB) | payer OTHER, SELFPAY ==
[2025-04-08 10:01] VITALS: BP 126/74; PULSE 73; RESP 12; O2SAT 96
--- NOTE | 2025-04-08 10:01 | MHC.PC.OV ---
Vital Signs 04/08/25 10:01 Height 5 ft 2.76 in Weight 168 lb 4 oz BMI 30.0 BP 126/74 Blood Pressure Location Rt brachial Position Sitting Respiration 12 Pulse 73 Pulse Source Pulse Oximeter Pulse Oximetry (%) 96 Oxygen Delivery Method Room Air Intake Visit Reasons: other Intake Note: Emergency follow up Guidance Consultant Required: No Allergies cholecalciferol (vitamin D3) (Vitamin D3) Allergy (Unknown, Verified 04/08/25 10:04) nausea and vomiting epinephrine Allergy (Unknown, Verified 04/08/25 10:04) anaphylaxis penicillin V Allergy (Unknown, Verified 04/08/25 10:04) nausea and vomiting shell fish Allergy (Severe, Uncoded 04/08/25 10:04) Throat swelling Band-Aid Allergy (Unknown, Uncoded 04/08/25 10:04) redness and itching [place] Syrup Allergy (Unknown, Uncoded 04/08/25 10:04) shortness of breath Latex Gloves Allergy (Unknown, Uncoded 04/08/25 10:04) itching Medical Adhesive Allergy (Unknown, Uncoded 04/08/25 10:04) redness and itching Medication List - Last Reconciled 04/08/25 by Kathi Block PA-C albuterol sulfate 90 mcg/actuation 2 puffs inhalation Q4-6H PRN apixaban (Eliquis) 2.5 mg PO BID diphenhydramine HCl (Benadryl) 25 mg PO BEDTIME PRN [Nasal crom spray 3 times daily ] Tobacco use date assessed: 04/08/25 Fall risk assessment: No Falls in past year Last assessed Fall Risk: 04/08/25 Dental Screening Dental Screen Date: 09/10/24 HPI other HPI Details Patient is a 69-year-old female who presents today for a follow up. She has a significant past medical history of a DVT, hidradenitis, monoallelic mutation of a TM gene, family history of pancreatic cancer granulomatous disease (lung, liver, spleen), fatty liver, dyslipidemia, allergic rhinitis, osteopenia, rectal polyp, breast cancer, alcohol abuse, lung nodule, osteoarthritis, tobacco use. CV: Patient complains today of an abnormal EKG. She states when she went to [facility] with complaints of right upper quadrant pain and was diagnosed with acute cholecystitis she had an EKG and it looked abnormal. She says that she does not recall ever having a history of an abnormal EKG so this made her very nervous as it showed a new septal infarct. She states that for the last year or so she has had intermittent chest pains but has not said anything. She says that she has always attributed it to heartburn or musculoskeletal. Her most recent example was a couple days ago she was shoveling snow when she felt chest pain that caused her to stop and rest. It does get better with rest and it is not reproducible. No significant shortness on breath, dizziness or nausea with this. She has a history of untreated cholesterol because she does not like the idea of taking statins. Currently asymptomatic. She is smoking. She is working on Prifloat back. heme/onc: . Patient has a history of infiltrate in ductal carcinoma of the breast 13 years ago and has MRI/mammo follow ups. She got notice from [facility] recently that there are new recommendations regarding a TM gene for which she tested positive for. Pancreatic screening is recommended if she has a family history of pancreatic cancer. She has 3 maternal cousins who from pancreatic cancer. Has followed with GI and recently had a MRI of the abdomen and pelvis. Overall normal other than the gallstones noted and fatty liver. Asymptomatic from this. Her brother recently tested positive for PABPN 1 gene for ocular pharyngeal muscular dystrophy. He is heterozygous dominant with a pathogenic variant of allele repeat #13. Per his results, testing for at-risk family members should be considered. Patient follows with Heme-Onc at [facility] Dr. Rodriguez. Dvt of left leg, on eliquis for life per heme/onc Dr. Rodriguez. MSK: has OA GI: Up-to-date with pancreatic screening. Followed with [facility] GI. Noted to have fatty liver. States that she has been eating more fatty foods than previous. Colonoscopy: Overdue and states that following her last colonoscopy she has had intermittent anal leakage and refuses to do this again. Does not want screening for colon cancer at this point. Bone density: 04/28-osteopenia Mammo/MRI: Mammo 08/28, MRI 02/27 Pap: Not had 1 in many years and does not wish to start Low-dose lung cancer screening: Does this at [facility]. . 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 Surgical History (Updated 04/08/25 @ 10:06 by Denisse Jane CMA) Hx of cholecystectomy Social History (Updated 09/10/24 @ 09:26 by Denisse Jane CMA) Housing: House Alcohol intake: current Patient Tobacco Use Status: Current everyday Tobacco user Cigarette Packs Per Day: 2 Years Smoked: 40 e-Cigarette/Vaping Use: Never Used Second Hand Smoke Exposure: No service: No Current occupational status: employed and retired 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 Current occupational exposures/hazards: Yes (hazards in pt homes) Cognitive needs: No Hearing needs: No Vision needs: No Questionnaire Thrive Questionnaire Date Thrive assessed: 09/10/24 I am a: Patient What is your living situation today?: I choose not to answer this question Within the past 12 months, did the food you bought not last and you didn't have the money to get more?: I choose not to answer this question Within the past 12 months, did you worry whether your food would run out before you got money to buy more?: I choose not to answer this question Do you have trouble paying for medicines?: I choose not to answer this question Do you have trouble getting transportation to medical appointments?: I choose not to answer this question Do you have trouble paying your heating and electricity bill?: I choose not to answer this question Do you have trouble taking care of your child, family member or friend?: I choose not to answer this question Do you have trouble with day-to-day activities such as bathing, preparing meals, shopping, managing finances, etc.?: I choose not to answer this question Are you currently unemployed and looking for a job?: I choose not to answer this question Are you interested in more education?: I choose not to answer this question Please select the resources that you would like help with: None Currently or been in a relationship where the following occur: I choose not to answer THRIVE Score: 0 AUDIT C Alcohol Use Questionnaire (AUDIT-C) 1. How often do you have a drink containing alcohol?: Never (Hasn't drank since surgery) 3. How often do you have six or more drinks on one occasion?: Never Total Score: 0 AARON-7 AMB Questionnaire AARON-7 Date AARON - 7 assessed: 09/10/24 Source: Developed by Drs. Raul Samuels, Kanchan Patterson, Andre Cobb and colleagues, with an educational jaron from [employer]. Physical exam (Primary Care) Vital Signs: Last Vital Signs Pulse 73 04/08/25 10:01 Resp 12 04/08/25 10:01 BP 126/74 04/08/25 10:01 Pulse Ox 96 04/08/25 10:01 Oxygen Delivery Method Room Air 04/08/25 10:01 BMI result Body Mass Index 30.0 Tobacco/Smoking Status: Tobacco use Status Tobacco use date assessed 12/23/24 04/08/25 10:03 Patient Tobacco Use Status Current everyday Tobacco 04/08/25 10:03 e-Cigarette/Vaping Use Never Used 04/08/25 10:03 Thrive Assessment: Date of Thrive Assessment Date Thrive assessed 09/10/24 04/08/25 10:03 Currently or been in a relationship where the following occur: I choose not to answer Const Orientation/consciousness: patient oriented x3 HENMT Ears: hearing grossly normal bilaterally Neck Thyroid: Thyroid normal Lymphatic: no lymphadenopathy noted Resp Auscultation: clear to auscultation bilaterally Cardio Rate: regular rate Rhythm: regular rhythm Heart sounds: S1 normal heart sound present and S2 normal heart sound present Skin General skin exam: no rashes or lesions noted Neuro General: patient oriented x3, gait normal and no focal motor deficits Office Procedures EKG Details: EKG is normal sinus rhythm at a rate of 72 beats per minute with nonspecific STT wave abnormalities. 70757-[id number], Complete Coding Level of Care Code Est Pt Level 4 (30513) Complex visit Add On G2211 Diagnoses Chest pain R07.9 Tobacco abuse Z72.0 Dyslipidemia E78.5 CPT Codes EKG - CPT: 63025-Ohspgmebrqfjuwwcy, Complete ([id number]) Assessment & Plan Assessment & Plan (1) Chest pain: Code(s): R07.9 - Chest pain, unspecified Category: Medical Plan: Currently asymptomatic. Labs ordered today. Encouraged her to consider treating cholesterol if it remains elevated. She will complete labs and let me know. Chest x-ray ordered Stress test ordered Echo ordered Referral to cardiology given the abnormal EKG and symptoms of chest pain and risk factors. We did discuss warning signs of chest pain that would require emergent medical treatment. (2) Tobacco abuse: Code(s): Z72.0 - Tobacco use Category: Medical Plan: Encouraged smoking cessation (3) Dyslipidemia: Code(s): E78.5 - Hyperlipidemia, unspecified Category: Medical Plan: We will let me know about starting a cholesterol-lowering medication prefers to recheck lipids 1st. Orders: Orders Hemoglobin A1c Today E78.5 - Hyperlipidemia, unspecified, R07.9 - Chest pain, unspecified, R73.01 - Impaired fasting glucose, Z72.0 - Tobacco use TSH reflex Free T4 Today E78.5 - Hyperlipidemia, unspecified, R07.9 - Chest pain, unspecified, Z72.0 - Tobacco use Lipid Panel Today E78.5 - Hyperlipidemia, unspecified, R07.9 - Chest pain, unspecified, Z72.0 - Tobacco use CA stress test Today E78.5 - Hyperlipidemia, unspecified, R07.9 - Chest pain, unspecified, Z72.0 - Tobacco use ECG holter monitor 24 hour Today E78.5 - Hyperlipidemia, unspecified, R07.9 - Chest pain, unspecified, Z72.0 - Tobacco use Comprehensive Carrier. Panel Fast Today E78.5 - Hyperlipidemia, unspecified, R07.9 - Chest pain, unspecified, Z72.0 - Tobacco use Complete Blood Count Auto Diff Today E78.5 - Hyperlipidemia, unspecified, R07.9 - Chest pain, unspecified, Z72.0 - Tobacco use XR chest 2V Today E78.5 - Hyperlipidemia, unspecified, R07.9 - Chest pain, unspecified, Z72.0 - Tobacco use Referrals Cardiology Referral E78.5 - Hyperlipidemia, unspecified, R07.9 - Chest pain, unspecified, R94.31 - Abnormal electrocardiogram [ECG] [EKG], Z72.0 - Tobacco use
--- OUTSIDE RECORDS SUMMARY | 2025-04-08 11:34 | XMS_ITS | Clinical Summary ---
Author Organization [facility] Address [address] [facility] [address] [place] [address] Care Team Providers Care Squadron Worker Name Role Phone Morgan Watson Unavailable Unavailable Allergies Active Allergy Reactions Criticality Noted Date Comments [place] Swelling,Unknown 09/13/2023 Clarithromycin Rash Low 09/13/2023 Clindamycin [...] of breast 06/12/2013 Overview (09/13/2023): Breast Cancer Encounters Date Type Department Care Team Description 02/08/2025 Patient Outreach [facility] Case Management [address] [place] [address] Walter Januarymartinezrachel Somers 02/04/2025 Patient Outreach [facility] Case Management [address] [place] [address] Morgan Watson 02/04/[address] [facility] Case Management [address] [place] [address] Morgan Watson 02/04/[address] [facility] MEDICAL [address] [place] [address] Morgan Watson from Last 3 Months Social History Tobacco Use Types Packs/Day Years [...] Tobacco Screening 1969 Hepatitis C Screening 1975 Hepatitis A Vaccines (1 of 2 - Risk 2-dose series) 1976 Pneumococcal Vaccine: 50+ Years (1 of 2 - PCV) 1976 RSV Patients and Patients Aged 60 years or older (1 - Risk 50-74 years 1-dose series) 2007 Zoster Vaccines (1 of 2) 2007 DTaP/Tdap/Td Vaccines (1 - Tdap) 11/09/2007 11/08/2007 Mammogram 01/28/2014 01/28/2013 Hepatitis B Vaccines (1 of 3 - Risk 3-dose series) 2017 COVID-19 Vaccine ( season) 2025 07/28/2021, 01/31/2021, 12/14/2020 Influenza Vaccine (#1) 2025 3, 02/26/2022, 03/15/2021, Additional history exists HIB Vaccines Aged Out No longer eligi [...] patient's age to complete this topic Insurance , [address] [place] [address] Care Teams Squadron Worker Relationship Specialty Start Date End Date Morgan Watson Health Navigator Financial Counseling [facility] Services 02/04/25
--- OUTSIDE RECORDS SUMMARY | 2025-04-08 11:34 | XMS_ITS | Clinical Summary ---
Author Organization [facility] Address [address] [facility] [address] [place] [phone] Phone Care Team Providers Care Lead Security Officer Name Role Phone Jacinta Gaona MD Primary Care Provider + Self-Referred, Patient Unavailable Unavailab Rafy Jiang MD Unavailable [phone] Rafy Amaya MD Unavailable [phone] Vesta Pretty MD, MPH Unavailable [phone] Allergies Active Allergy Reactions Criticality Noted Date [...] 11/08/2007 MAMMOGRAM 12/16/2020 12/16/2018, 01/28/2013 OSTEOPOROSIS SCREENING INITIAL (ONE-TIME) 2022 INFLUENZA VACCINE (#1) 2024 0, 02/16/2019, 02/27/2018, Additional history exists COVID-19 VACCINE (2024- season) 2025 01/31/2021, 12/14/2020 RSV VACCINE (1 - 1-dose [...] Interpretation) (12/16/2018 12:00 AM EDT) Other Narrative GABE_[facility] - 01/26/2019 11:09 AM EDT This study is for PACS storage only and not for interpretation. us Vesta Pretty MD, MPH IMG OUTSIDE IMAGING W/OUT IN TERPRETATION Final Result PERCIPIO_[facility] from Last 3 Months or Most Recently Relevant to Health Maintenance Insurance [facility] HMO POS HMO POS HMO POS HMO POS O POS O POS O POS O POS HMO POS Care Teams Lead Security Officer Relationship Specialty Start Date End Date Jacinta Gaona MD [address] [place] [id number] PCP - General 09/09/14 Self-Referred, Patient Referring Physician 12/22/18 Rafy Amaya MD [address] [place] [address] [email or web address] 12/22/18 Rafy Amaya MD [address] [place] [address] [email or web address] Referring Physician Internal Medicine 01/26/19 Vesta Pretty MD, MPH [address] [place] [address] [email or web address] [email or web address] THE [facility] Genetics 01/26/19 Additional Source Comments The information contained in this document represents components of the legal health record. It is not the complete legal health record.[facility]
--- OUTSIDE RECORDS SUMMARY | 2025-04-08 11:34 | XMS_ITS | Clinical Summary ---
Author Organization [facility] Address [address] [place] [address] Care Team Providers Care Sugar Refinery Supervisor Name Role Phone Unavailable Primary Care Provider Unavailabl e Social History Tobacco Use Types Packs/Day Years Used Date Smoking Tobacco: Never Assessed Comments Unknown Sex and Gender Information Value Date Recorded Sex Assigned at Not on file Legal Sex Female 5:03 PM EDT Gender Identity Not on file Sexual Orientation Not on file Plan of Treatment Health Maintenance Due Date Last Done Comments Advance Care Planning 1955 Hepatitis C Virus Screening 1955 DTaP/Tdap/Td Vaccines (1 - Tdap) 1976 Pneumococcal Vaccines 50+ (1 of 1 - PCV) 2007 Zoster (Shingles) Vaccine (1 of 2) 2007 COVID-19 Vaccine ( - 2023-2 5 season) 2025 RSV Vaccine 50 years and old er and Patients (1 - 1-dose 75+ series) 2032 Hepatitis B Vaccines Aged Out No long er eligible based on patient's age to complete this topic
--- OUTSIDE RECORDS SUMMARY | 2025-04-08 11:34 | XMS_ITS | Encounter Summary ---
Author Organization [facility] Address [address] [employer] [facility] [address] [place] [phone] Phone Care Team Providers Care Supervisor Agricultural Education Name Role Phone Jacinta Gaona MD Primary Care Provider + Self-Referred, Patient Unavailable Unavailab Rafy Amaya MD Unavailable [phone] Rafy Amaya MD Unavailable [phone] Vesta Pretty MD, MPH Unavailable [phone] Encounter Details Date Type Department Care Team (Late st Contact Info) Description 01/26/2019 Procedure Pass DF IMG OUTSIDE IMG [address] [place] [address] Social History Tobacco Use Types Packs/Day Years Used Date Smoking Tobacco: Some Days Cigarettes Comments Unknown Sex and Gender Information Value Date Recorded Sex Assigned at Not on file Legal Sex Female 6:10 PM EST Gender Identity Not on file Sexual Orientation Not on file documented as of this encounter Plan of Treatment Not on file documented as of this encounter Visit Diagnoses Not on filedocumented in this encounter Care Teams Supervisor Agricultural Education Relationship Specialty Start Date End Date Jacinta Gaona MD [address] [place] [id number] PCP - General 09/09/14 Self-Referred, Patient Referring Physician 12/22/18 Rafy Amaya MD [address] [place] [address] [place] [address] [email or web address] Internal Medicine 12/22/18 Rafy Amaya MD [address] [place] [address] [email or web address] Referring Physician Internal Medicine 01/26/19 Vesta Pretty MD, MPH [address] [place] [address] [email or web address] Genetics 01/26/19 documented as of this encounter Additional Source Comments The information contained in this document represents components of the legal health record. It is not the complete legal health record.[facility]
--- OUTSIDE RECORDS SUMMARY | 2025-04-08 11:35 | XMS_ITS | Clinical Summary ---
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 Active [...] gene 01/30/2019 Overview (05/29/2024): See note from [facility]; sister w/ this mutation precipitated testing; risk of breast and panc cancer Fatty liver 11/25/2017 Overview (05/29/2024): 06/13/15 CT Osteopenia 06/28/2016 Overview (05/29/2024): T score Left hip -1.3; 10/21: L fem neck -1.7 Eye lesion 08/13/2014 Granulomatous disease 04/09/2014 Overview (05/29/2024): Lung, liver, spleen on CT; stable Emphysema lung (CMS/HCC V24, CMS/HCC V28) 2013 Overview (05/29/2024): Dr Campbell Diastolic dysfunction, left ventricle 10/24/2011 Overview (05/29/2024): Echo 10/15, rest fine Cholelithiasis 10/23/2011 Overview (05/29/2024): 06/13/2015 CT stable Hyperlipidemia 07/17/2011 Overview (05/29/2024): Current high hdl when drinking Tobacco use disorder 02/19/2011 Immunizations Immunization Administration Dates Next Due Influenza trivalent, 0.5mL, preservative free (Fluarix; FluLaval; Fluzone) ages 6mo and older (Afluria) 3 years and older 02/26/2022,02/25/2020,03/03/2018 [employer] SARS-CoV-2 COVID-19, mRNA, LNP-S, preservative free 07/28/2021,01/31/2021,12/14/2020 Td Tetanus diptheria (Tdvax) 7yo and older 11/07 Surgical History Surgery Date Site/Laterality Comments HAND SURGERY PROCEDURE: NV UNLISTED PROCEDURE HANDS/FINGERS; COMMENT: thumb trauma OTHER SURGICAL HISTORY PROCEDURE: NV ECHO TRANSTHORAC R-T 2D W/WO M-MODE REC COMP; COMMENT: diastolic dysfunction STEREOTACTIC BREAST BIOPSY 06/2016 Bilateral PROCEDURE: STEREOTACTIC BREAST BIOPSY STEREOTACTIC BREAST BIOPSY 01/12/2013 Left PROCEDURE: STEREOTACTIC BREAST BIOPSY OTHER SURGICAL HISTORY 02/03/1997 PROCEDURE: NV LARYNGOSCOPY FLEXIBLE DIAGNOSTIC BREAST LUMPECTOMY 03/03/2013 Left [...] Spine Infiltrating ductal carcinom a of breast (CMS/HCC V24, CMS/HCC V28) 01/14/2013 DX:Infiltrating ductal carc inoma of breast (HCC); COMMENT: 01/2013 Left, Stage I, T1C N0, ER Positive, NV Weakly Positive, HER-2 Negative, Lumpectomy, Partial breast raadiation, 2013 Anastrozole Emphysema lung (CMS/HCC V24, CMS/HCC V28) 04/09/2014 DX:Emphysema lung (HCC); COM MENT: Dr Campbell Cholelithiasis 10/23/2011 DX:Cholelithiasi s; COMMENT: 06/13/2015 CT stable Fatty liver 11/25/2017 DX:Fatty liver; COMMENT: 06/13/15 CT Osteopenia 06/28/2016 DX:Osteopenia; C OMMENT: T score Left hip -1.3; 10/21: L fem neck -1.7 Eye lesion 08/13/2014 DX:Eye lesion Granulomatous disease 04/09/2014 DX:Granulo matous disease (HCC); COMMENT: Lung, liver, spleen on CT; stable [...] RSV Immunization Adult Patients (1 - Risk 50-74 years 1-dose series) 2007 DTaP,Tdap,and Td Vaccines (2 - Td or Tdap) 11/07/2017 11/08/2007 Colorectal Cancer Screening: Stool Based Tests (FOBT/FIT) 04/14/2022 Social Influencers of Health Screening 04/14/2022 Falls Risk Assessment 2022 Depression Screening 05/06/2024 Breast Cancer Screening 05/17/2024 05/17/19, 03/18/2018 COVID-19 Vaccine (2024-2 6 season) 2025 07/28/2021, 01/31/2021, 12/14/2020 Influenza Vaccine (#1) 2025 , 02/25/2020, 03/03/2018 Osteoporosis Screening (Bone Density Screening) 10/22/2027 10/21/2017 Cholesterol Screening (Lipid Panel) 02/23/2028 02/22/2023 Hepatitis C Screening Completed 06/25/2012 Lung Cancer Screening (Low Dose CT) Discontinued 03/13/2014, 03/13/2013 HIB Vaccines Aged Out No longer eligi [...] 20 months Aged Out No longer eligible based on patient's age to complete this topic Varicella Vaccines Aged Out No longer eligible based on patient's age to complete this topic Procedures Procedure Name Priority Date/Time Associated Diagnosis Comments LIPID PANEL Routine 02/22/2023 [facility] SCREENING DIGITAL Routine 03/18/2018 1:10 PM EST Encounter for screening mammogram for malignant neoplasm of breast [facility] DEXA AXIAL SKELETON Routine 10/21/2017 5:02 [...] interpretation Blood Venous blood specimen / Unknown us Historical Provider LAB BLOOD ORDERABLES Ashley l Result * [facility] SCREENING DIGITAL (03/18/2018 1:10 PM EST) Anatomical Region Laterality Modality Mammography 03/13/2018 2:17 PM EST Narrative 03/18/2018 1:10 PM [facility] Diagnostic Imaging Department [address] [place] [id number] Patient: JOÃO ALAMO Hollis /Age/Sex: 1955 - 62 - F Unit#: [id number] [facility] Mnemonic/Ordering Site: [facility] Ordering Physician: RAFY AGUILAR MD [facility] Screening Digital - 03/13/18 - 1535 EXAM: [facility] Screening Digital EXAM DATE AND [...] MLO projection. Computer aided detection with the [employer] 7.2-H was employed. (The study was read [...] Routine screening mammogram BILATERAL in 1 year. 10854, 99660 3342F, 7025F Dictating Physician: YUE MCPHERSON MD Electronically Signed by: YUE MCPHERSON MD Dic Date/Time: 03/18/18 1307 Sign date/Time: 03/18/18 1310 Procedure Note Yue Mcpherson MD - 04/24/2022 [facility] Diagnostic Imaging Department [address] [place] [id number] Patient: JOÃO ALAMO Hollis /Age/Sex: 1955 - 62 - F Unit#: [id number] Location/Status: [facility] CLI Mnemonic/Ordering Site: [facility] Ordering Physician: RAFY AGUILAR MD [facility] Screening Digital - 03/13/18 - 1535 EXAM: [facility] Screening Digital EXAM DATE AND [...] MLO projection. 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 (The study was read as a [...] Routine screening mammogram BILATERAL in 1 year. 08794, 28679 3342F, 7025F Dictating Physician: YUE MCPHERSON MD Electronically Signed by: YUE MCPHERSON MD Dic Date/Time: 03/18/18 1307 Sign date/Time: 03/18/18 1310 us Rafy Aguilar MD IMG BI PROCEDURES Final Res ult * [facility] DEXA AXIAL SKELETON (10/21/2017 5:02 PM EDT) Anatomical Region Laterality Modality Mammography 10/16/2017 10:4 2 AM EDT Narrative 10/21/2017 5:02 PM EDT [facility] Diagnostic Imaging Department [address] [place] [id number] Patient: JOÃO ALAMO Hollis MunroeB./Age/Sex: 1955 - 62 - F Unit#: [id number] [facility] CLI Mnemonic[facility] Ordering Physician: RAFY AGUILAR MD [facility] Dexa Axial Skeleton - 10/21/171653 [...] probability of hip fracture of 0.8%. Code 59849 Dictating Physician: KJ KUHN MD Electronically Signed by: KJ KUHN MD Dic Date/Time: 10/21/171658 Sign date/Time: 10/21/171701 Procedure Note Kj Kuhn MD - 04/24/2022 [facility] Diagnostic Imaging Department [address] [place] [address] Patient: JOÃO ALAMO Hollis Bartlett/Age/Sex: 1955 - 62 - F Unit#: [id number] Location/Status: [facility] Mnemonic/Ordering Site: [facility] Ordering Physician: RAFY AGUILAR MD [facility] Dexa Axial Skeleton - 10/21/171653 [...] density of the femurs bilaterally is 0.929 gm/[id number] is 92% of that of young normals [...] probability of hip fracture of 0.8%. 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
== END 2025-04-08 12:30 | disposition home or self-care (01) ==
LOC: HO.HMCFM 09:54
PROVIDERS: PCP Physician Assistant; Visit Provider Physician Assistant
DX: R07.9 Chest pain, unspecified (principal); Z72.0 Tobacco use; E78.5 Hyperlipidemia, unspecified

== ENCOUNTER → 2025-04-08 09:54 | Outpatient (BNVA) | payer OTHER, SELFPAY | PROVIDERS: PCP Physician Assistant; Visit Provider Physician Assistant | DX: R94.31 Abnormal electrocardiogram [ECG] [EKG] (principal); K81.0 Acute cholecystitis; R07.9 Chest pain, unspecified; E78.5 Hyperlipidemia, unspecified; F17.210 Nicotine dependence, cigarettes, uncomplicated; Z79.01 Long term (current) use of anticoagulants; Z79.899 Other long term (current) drug therapy | CPT/HCPCS: 93005 ==